=== PATIENT | female | born 1960 | race Caucasian/White ===

== ENCOUNTER 2023-06-15 12:38 | Emergency (ER) | payer MEDICARE, SELFPAY ==
[2023-06-15 12:39] VITALS: BP 157/115; PULSE 102; RESP 18; O2SAT 98; BMI 16.7
--- NOTE | 2023-06-15 12:51 | CTR_ITS ---
PROCEDURE INFORMATION: Exam: CT Head Without Contrast Exam date and time: 06/15/2023 1:04 PM Age: 61 years old Clinical indication: Other: Seizure; Additional info: New onset seizures multiple falls TECHNIQUE: Imaging protocol: Computed tomography of the head without contrast. Radiation optimization: All CT scans at this facility use at least one of these dose optimization techniques: automated exposure control; mA and/or kV adjustment per patient size (includes targeted exams where dose is matched to clinical indication); or iterative reconstruction. REPORTING DATA: Count of CT and Cardiac NM exams in prior 12 months: This patient has received 0 known CTs and 0 known cardiac nuclear medicine studies in the 12 months prior to the current study. COMPARISON: No relevant prior studies available. RADIATION DOSE METRICS: Total DLP (mGy-cm): 807.1 FINDINGS: Brain: Diffuse cerebral atrophy. No hemorrhage. Symmetric mineralization of the basal ganglia. Preserved rodgers-white matter differentiation. Chronic encephalomalacia and gliosis at the right frontoparietal lobe. Prominent perivascular spaces versus old lacunar infarcts at the bilateral inferior basal ganglia and left external capsule. Mild patchy cerebral white matter hypoattenuation in keeping with chronic microvascular ischemic change. No mass effect. Prominent cisterna magna. Cerebral ventricles: Ventricles are in proportion to the degree of atrophy. Pituitary gland and sella: Partially empty sella. Paranasal sinuses: Visualized sinuses are unremarkable. No fluid levels. Mastoid air cells: Underpneumatized. Auditory system: Soft tissue opacification of both middle ear cavities. Bones/joints: Mild right TMJ degenerative changes. Visualized odontoid projects superior relative to the lower clivus. Associated posterior displacement of the lower brainstem/upper spinal cord at this level. Soft tissues: Unremarkable. CT/CT head wo con* [id number] IMPRESSION: 1. No acute intracranial findings. 2. 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 3. Evidence of basilar invagination. Correlate for clinical evidence of mass effect on the lower brainstem/upper spinal cord. Consideration for MRI. 4. Bilateral middle ear cavity opacification in keeping with otitis media, which may be chronic in the setting of underpneumatized mastoid air cells.
--- NOTE | 2023-06-15 12:51 | ED_ITS ---
HPI - General Adult General: Chief complaint: Syncope Stated complaint: seizure Time Seen by Provider: 06/15/23 12:41 Source: patient Mode of arrival: EMS History of Present Illness: 61-year-old female presents emergency room via EMS she has a history of Down syndrome and severe's scoliosis. She normally is ambulatory without any assistance. She has had several falls last few days she not had any vomiting. She had what appeared to be a seizure today. She is not on any anticoagulants she has no obvious signs of trauma to her head neck or extremities. She is nonverbal her mother is with her at the bedside her mother is deaf and uses a cell phone gabriel to communicate. Her mother does want some evaluation done. Patient right now is alert and reactive to stimuli with redirection she will allow the majority of exam. Mother denies any chronic kidney respiratory or cardiac issues no previous history of seizure Review of Systems General: Reports: ROS unobtainable due to medical condition and ROS unobtainable due to mental status PFS ED PFSH: Medical History (Updated 06/15/23 @ 14:03 by Keven Vallejo DO) Down's syndrome Physical Exam Const: GENERAL APPEARANCE: comfortable ORIENTATION/CONSCIOUSNESS: Yes awake HENMT: COMMON NORMALS: normocephalic, atraumatic and hearing grossly normal bilaterally HEAD & SCALP: normocephalic and atraumatic Resp: COMMON NORMALS: normal respiratory effort, No retractions, No use of accessory muscles and clear to auscultation bilaterally AUSCULTATION: clear to auscultation bilaterally Cardio: COMMON NORMALS: regular rate, regular rhythm and No murmurs present (Cardio) RATE: regular rate RHYTHM: regular rhythm GI: COMMON NORMALS: Soft to palpation and No hepatosplenomegaly present AUSCULTATION: Yes normoactive bowel sounds PALPATION: Yes Soft to palpation, No Tenderness to palpation present (GI), No Guarding due to palpation present (GI) and Yes No hepatosplenomegaly present Extremity: COMMON NORMALS: normal to inspection, capillary refill normal, no clubbing, cyanosis or edema, no calf tenderness and no pedal edema Skin: COMMON NORMALS: no rashes or lesions noted GENERAL SKIN EXAM: no rashes or lesions noted Course Vital Signs: Vital signs: Vital Signs Temperature 98.3 F 06/15/23 13:27 Pulse Rate 102 H 06/15/23 12:39 Respiratory Rate 18 06/15/23 12:39 Blood Pressure 157/115 06/15/23 12:39 Pulse Oximetry 98 06/15/23 12:39 Oxygen Delivery Me thod Room Air 06/15/23 12:39 MDM - General Adult Medical Decision Making Patient is up and awake and alert at her baseline per the mother. Reviewed CT shows multiple old strokes involution of the basal ganglia potentially creating pressure at the brainstem which may account for falls and the episode this morning. Mother is not interested in a real aggressive work-up or any kind of aggressive treatments. We will discharge the patient home will refer to neurology. We were able to get a CT the patient will have to be heavily sedated to get an MRI. Return if has any further problems. Medical Records I reviewed the patient's medical records. Lab Data I reviewed the patient's lab results. 06/15/23 13:27 06/15/23 13:[address] 06/15/23 12:51 IMPRESSION: 1. No acute intracranial findings. 2. 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 3. Evidence of basilar invagination. Correlate for clinical evidence of mass effect on the lower brainstem/upper spinal cord. Consideration for MRI. 4. Bilateral middle ear cavity opacification in keeping with otitis media, which may be chronic in the setting of underpneumatized mastoid air cells. ADDENDUM: 06/15/23 1346 Findings were discussed with KEVEN AYERS at 06/15/2023 1:44 PM CDT. The findings were acknowledged and understood. Laboratory Results WBC 4.4 10^3/uL (4.0-10.0) 06/15/23 13:27 RBC 4.46 10^6/uL (4.1-5.3) 06/15/23 13:27 Hgb 13.2 g/dL (11.5-15.3) 06/15/23 13:27 Hct 42.1 % (37.0-47.0) 06/15/23 13:27 MCV 94.4 fl (81-99) 06/15/23 13:27 MCH 29.6 pg (28.0-34.0) 06/15/23 13:27 MCHC 31.4 g/dL (30.0-36.0) 06/15/23 13:27 RDW 17.8 % (12.1-15.1) H 06/15/23 13:27 Plt Count 364 10^3/cmm (130-400) 06/15/23 13:27 MPV 9.6 fL (7.4-10.4) 06/15/23 13:27 Neut % (Auto) 65.1 % 06/15/23 13:27 Lymph % (Auto) 26.4 % 06/15/23 13:27 Refugio % (Auto) 6.2 % 06/15/23 13:27 Eos % (Auto) 0.7 % 06/15/23 13:27 Baso % (Auto) 0.9 % 06/15/23 13:27 Neut # (Auto) 2.83 10^3/uL (1.8-7.7) 06/15/23 13:27 Lymph # (Auto) 1.2 10^3/uL (0.8-4.8) 06/15/23 13:27 [place]ugio # (Auto) 0.3 10^3/uL (0.2-0.9) 06/15/23 13:27 Eos # (Auto) 0.0 10^3/uL (0.0-0.8) 06/15/23 13:27 Baso # (Auto) 0.0 10^3/uL (0.0-0.1) 06/15/23 13:27 Nucleated RBC % (auto) 0 % 06/15/23 13:27 Nucleated RBCs # 0.0 /100WBC 06/15/23 13:27 Sodium 136 mmol/L (136-145) 06/15/23 13:27 Potassium 4.0 mmol/L (3.5-5.1) 06/15/23 13:27 Chloride 100 mmol/L (98-107) 06/15/23 13:27 Carbon Dioxide 29 mmol/L (22-29) 06/15/23 13:27 Anion Gap 11.0 (5-19) 06/15/23 13:27 BUN 9 mg/dL (8-23) 06/15/23 13:27 Creatinine 0.5 mg/dL (0.5-0.9) 06/15/23 13:27 GFR Calculation 124.6 mL/min (90-130) 06/15/23 13:27 Calcium 8.6 mg/dL (8.5-10.5) 06/15/23 13:27 Magnesium 2.0 mg/dL (1.7-2.3) 06/15/23 13:27 Total Bilirubin 0.3 mg/dL (0.15-1.2) 06/15/23 13:27 ALT 27 U/L (0-33) 06/15/23 13:27 Globulin 2.9 g/dL (1.3-4.6) 06/15/23 13:27 Discharge Plan Discharge Patient Disposition: Home Clinical Impression: Basal ganglia degeneration, Down's syndrome, Otitis media Condition: Stable Prescriptions: No Action cetirizine 10 mg Tablet 10 mg PO DAILY Aspir-81 81 mg Tablet,Delayed Release (Dr/Ec) 81 mg PO DAILY levothyroxine 75 mcg Tablet 75 mcg PO DAILY montelukast 10 mg Tablet 10 mg PO DAILY Miralax 17 gram/dose Powder 1 g PO DAILY PRN (Reason: Constipation) Viactiv 500-100-40 mg-unit-mcg Tablet,Chewable 1 tab PO DAILY One-A-Day Women's 50 Plus 400 mcg-500 mg calcium-20 mcg Tablet 1 tab PO DAILY ferrous sulfate 220 mg (44 mg iron)/5 mL Elixir 220 mg PO DAILY B12 Active 1,000 mcg Tablet,Chewable 1,000 mcg PO DAILY Discharge Orders: Discharge ED (Routine); Ordered 06/15/23 Ordered By: Keven Vallejo Discharge Diet: Usual diet Discharge Activity: Limit activity as instructed Patient Instructions: Opioid Safety, Pain Management Activity Restrictions/Additional Instructions: You were seen today to evaluate for seizures and frequent falls. There were changes that appear to be creating pressure at the base of the brain. Recommend that you follow-up with neurology, telephonic nurse case manager will make arrangements for you. Coding Level of Care Code ED Evaluation Advisor for Luis Lopez
--- NOTE | 2023-06-15 13:21 | ECG_ITS ---
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 Measurements Intervals [place] Rate: 95 P: 51 CA: 161 QRS: -60 QRSD: 73 T: 37 QT: 315 QTc: 397 Interpretive Statements SINUS RHYTHM LEFT ANTERIOR FASCICULAR BLOCK [QRS AXIS <= -45, QR IN I, RS IN II] POSSIBLE ANTERIOR MYOCARDIAL INFARCTION , OF INDETERMINATE AGE [30 ms Q WAVE IN V3/V4, OR R < 0.2 mV IN V4] No previous ECG available for comparison Electronically Signed On 06-17-2023 8:34:11 CDT by Jorge Thakur M.D. [email or web address]
[2023-06-15 13:27] VITALS: TEMP 36.8
[2023-06-15 13:33] LABS: Basophils % 0.9 %; Eosinophils % 0.7 %; Hematocrit 42.1 % (37.0-47.0); Hemoglobin 13.2 g/dL (11.5-15.3); Lymphocytes # 1.2 10^3/uL (0.8-4.8); Lymphocytes % 26.4 %; Mean Corpuscular HGB Conc 31.4 g/dL (30.0-36.0); Mean Corpuscular Hemoglobin 29.6 pg (28.0-34.0); Mean Corpuscular Volume 94.4 fl (81-99); Mean Platelet Volume 9.6 fL (7.4-10.4); Monocytes # 0.3 10^3/uL (0.2-0.9); Monocytes % 6.2 %; Neutrophils # 2.83 10^3/uL (1.8-7.7); Neutrophils % 65.1 %; Nucleated Red Blood Cells % 0 %; Platelet Count 364 10^3/cmm (130-400); Red Blood Count 4.46 10^6/uL (4.1-5.3); Red Cell Distribution Width 17.8 % (12.1-15.1); White Blood Count 4.4 10^3/uL (4.0-10.0)
[2023-06-15 13:56] LABS: Alanine Aminotransferase 27 U/L (0-33); Albumin Level 3.4 g/dL (3.5-5.2); Alkaline Phosphatase 119 U/L (35-105); Aspartate Amino Transferase 35 U/L (0-32); Blood Urea Nitrogen 9 mg/dL (8-23); Calcium 8.6 mg/dL (8.5-10.5); Carbon Dioxide 29 mmol/L (22-29); Chloride 100 mmol/L (98-107); Globulin 2.9 g/dL (1.3-4.6); Glomerular Filtration Rate 124.6 mL/min (90-130); Glucose 126 mg/dL (65-115); Osmolality Calculated 282 mOsm/kg (285-295); Sodium 136 mmol/L (136-145); Total Bilirubin 0.3 mg/dL (0.15-1.2); Total Protein 6.3 g/dL (6.6-8.7)
[2023-06-15 14:05] VITALS: BP 126/76; PULSE 90; RESP 16; O2SAT 93
--- NOTE | 2023-06-17 11:15 | DCPLANNER ---
Addendum entered by Allyson Boggs 07/09/23 15:02: Appointment cancelled Addendum entered by Allyson Boggs 06/26/23 12:14: Patient has a follow up appointment scheduled for Saturday, July 08, 2023 at 12:[address] Moore at neurology. Original Note: sharepoint manager had message to schedule a follow up appointment for patient with neurology. sharepoint manager sent patients information to the front office staff at neurology. Patients information will be printed and reviewed. Clinic will call patient with appointment information.
--- NOTE | 2023-06-18 11:19 | DCPLANNER ---
music manager called patient due to no primary care physician - no answer at this time.
--- NOTE | 2023-07-24 12:47 | DCPLANNER ---
manager payer called patient due to no primary care physician - no answer at this time, and unable to leave a voicemail for patient.
== END 2023-06-15 16:01 | disposition home or self-care (01) ==
PROVIDERS: Emergency Provider Family Medicine
DX: G23.9 Degenerative disease of basal ganglia, unspecified (principal); Q90.9 Down syndrome, unspecified; H66.93 Otitis media, unspecified, bilateral; Z86.73 Personal history of transient ischemic attack (TIA), and cerebral infarction without residual deficits
CPT/HCPCS: 36415; 70450; 80053; 83735; 85025; 93005; 99285